=== PATIENT | female | born 1975 | race Caucasian/White ===

== ENCOUNTER 2017-03-07 06:14 | Emergency (ER) | payer MEDICAID ==
[~2017-03-07] VITALS: Ht 162.6 cm; Wt 73.3 kg
[2017-03-07 06:21] VITALS: Ht 162.6 cm; Wt 73.3 kg
[2017-03-07] MEDS ORDERED: KETOROLAC 30 MG INJ IV STA (06:32)
[2017-03-07] MEDS ORDERED: ONDANSETRON 4 MG INJ IV STA (06:32)
[2017-03-07 06:58] LABS: BASOPHIL # 0.1 10^3/ul (0.0-0.1); BASOPHILS % 0.6 % (0.0-2.0); EOSINOPHILS # 0.5 10^3/ul (0.0-0.5); EOSINOPHILS % 5.7 % (0.0-7.0); HEMATOCRIT 35.8 % (37.0-47.0); HEMOGLOBIN 12.5 g/dl (12.0-16.0); LYMPHOCYTES # 2.7 10^3/ul (0.8-2.9); MEAN CORPUSCULAR HEMOGLOBIN 28.9 pg (29.0-33.0); MEAN CORPUSCULAR HGB CONC 34.9 g/dl (32.0-37.0); MEAN CORPUSCULAR VOLUME 82.7 fl (82.0-101.0); MEAN PLATELET VOLUME 8.6 fl (7.4-10.4); MONOCYTE # 0.5 10^3/ul (0.3-0.9); MONOCYTES % 6.4 % (0.0-11.0); NEUTROPHIL # 4.6 10^3/ul (1.6-7.5); NEUTROPHILS % 55.1 % (39.0-77.0); PLATELET COUNT 409 10^3/UL (140-415); RED BLOOD COUNT 4.33 10^6/ul (4.20-5.40); WHITE BLOOD COUNT 8.3 10^3/ul (4.8-10.8)
[2017-03-07 07:04] LABS: ADD UMIC YES; UR ASCORBIC ACID NEGATIVE (NEGATIVE); UR BACTERIA FEW /HPF (NONE SEEN); UR BILIRUBIN (Dip) NEGATIVE (NEGATIVE); UR BLOOD (Dip) 1+ mg/dL (NEGATIVE); UR CLARITY SLIGHTLY CLOUDY (CLEAR); UR COLOR YELLOW (YELLOW); UR GLUCOSE (Dip) NEGATIVE (NEGATIVE); UR KETONES (Dip) NEGATIVE (NEGATIVE); UR LEUKOCYTE ESTERASE (Dip) 3+ Leu/ul (NEGATIVE); UR MUCUS FEW /HPF (NONE SEEN); UR NITRITE (Dip) NEGATIVE (NEGATIVE); UR RBC 4 /HPF (0-5); UR SPECIFIC GRAVITY (Dip) 1.013 (1.003-1.030); UR SQUAMOUS EPITHELIAL CELL MODERATE /HPF (FEW); UR TOTAL PROTEIN (Dip) NEGATIVE (NEGATIVE); UR UROBILINOGEN (Dip) NEGATIVE (NEGATIVE)
[2017-03-07 07:35] LABS: ALBUMIN 4.2 g/dl (3.3-4.9); ALBUMIN/GLOBULIN RATIO 1.16; CALCIUM 8.3 mg/dl (8.4-10.2); CREATININE 0.6 mg/dl (0.44-1.00); POTASSIUM 3.9 mmol/L (3.5-5.1); TOTAL PROTEIN 7.8 g/dl (6.1-8.1)
--- NOTE | 2017-03-07 08:53 | RADRPT ---
PROCEDURE: US Pelvis. CLINICAL INDICATION: pelvic pain TECHNIQUE: Multiple sonographic images of the pelvis were obtained utilizing a transabdominal and endovaginal technique. The images were reviewed on a PACS workstation. COMPARISON: None. FINDINGS: The uterus is normal in size with a normal appearance of the myometrium. The uterus measures 9.1 x 4.1 x 5.1 cm. The endometrial stripe is homogeneous in appearance and has the thickness of 5 mm. The ovaries are normal in size and echogenicity. Normal Doppler flow is identified in both ovaries. The right ovary measures 4.2 x 1.8 x 3.1 cm. There is a 1.2 cm simple cyst in the right ovary. The left ovary measures 2.0 x 2.0 x 3.4 cm. No free fluid is present within the pelvis. RPTAT: AA IMPRESSION: Unremarkable pelvic ultrasound. .Donavon Bowser MD, Date Time Electronically viewed and signed by .Donavon Bowser MD, on 03/07/2017 08:53 .S/
[2017-03-07] MEDS ORDERED: ACET1TAB40 PO (09:52)
[2017-03-07] MEDS ORDERED: IBUP-1542 PO (09:52)
[2017-03-07] MEDS ORDERED: CEPH-443 PO (09:53)
--- NOTE | 2017-03-07 09:56 | ERD ---
ER Documentation Chief Complaint Chief Complaint BIBA x belly pain&vomiting today HPI This 5-year-old female presents with left lower quadrant abdominal pain or pelvic pain with nausea starting this morning. She denies any dysuria or vaginal discharge. She denies any fevers or vomiting. She denies any right- sided abdominal pain. Last menstrual period was 2 weeks ago. ROS All systems reviewed and are negative except as per history of present illness. Medications Home Meds Active Scripts Cephalexin* (Keflex*) 500 Mg Capsule, 500 MG PO QID for 5 Days, CAP Prov:LAZARO WILLETT MD 03/07/17 Acetaminophen with Codeine (Acetaminophen-Cod #3 Tablet) 1 Each Tablet, 1 TAB PO Q6H Y for PAIN, #7 TAB Prov:LAZARO WILLETT MD 03/07/17 Ibuprofen* (Motrin*) 600 Mg Tab, 600 MG PO Q6, #15 TAB Prov:LAZARO WILLETT MD 03/07/17 Allergies Allergies: Coded Allergies: No Known Allergy (Unverified , 03/07/17) PMhx/Soc Medical and Surgical Hx: pt denies Medical Hx, pt denies Surgical Hx Hx Alcohol Use: Yes Hx Substance Use: No Hx Tobacco Use: No Physical Exam Vitals Vital Signs Date Time Temp Pulse Resp B/P Pulse Ox O2 Delivery O2 Flow Rate FiO2 03/07/17 06:21 97.6 92 20 132/96 100 Physical Exam Const: [], Not ill-appearing. Head: Atraumatic Eyes: Normal Conjunctiva ENT: Normal External Ears, Nose and Mouth. Neck: Full range of motion..~ No meningismus. Resp: Clear to auscultation bilaterally Cardio: Regular rate and rhythm, no murmurs Abd: Soft, left lower quadrant. No rebound. No tenderness at McBurney's point no Fox sign., non distended. Normal bowel sounds Skin: No petechiae or rashes Back: No midline or flank tenderness Ext: No cyanosis, or edema Neur: Awake and alert Psych: Normal Mood and Affect Result Diagram: 03/07/1745 03/07/1745 Results 24 hrs Laboratory Tests Test 03/07/17 06:45 White Blood Count 8.310^3/ul Red Blood Count 4.3310^6/ul Hemoglobin 12.5g/dl Hematocrit 35.8% Mean Corpuscular Volume 82.7fl Mean Corpuscular Hemoglobin 28.9pg Mean Corpuscular Hemoglobin Concent 34.9g/dl Red Cell Distribution Width 13.0% Platelet Count 69925^3/UL Mean Platelet Volume 8.6fl Neutrophils % 55.1% Lymphocytes % 32.0% Monocytes % 6.4% Eosinophils % 5.7% Basophils % 0.6% Nucleated Red Blood Cells % 0.0/100WBC Neutrophils # 4.610^3/ul Lymphocytes # 2.710^3/ul Monocytes # 0.510^3/ul Eosinophils # 0.510^3/ul Basophils # 0.110^3/ul Nucleated Red Blood Cells # 0.010^3/ul Urine Color YELLOW Urine Clarity SLIGHTLY CLOUDY Urine pH 5.0 Urine Specific Tracy 1.013 Urine Ketones NEGATIVEmg/dL Urine Nitrite NEGATIVEmg/dL Urine Bilirubin NEGATIVEmg/dL Urine Urobilinogen NEGATIVEmg/dL Urine Leukocyte Esterase 3+Carlos/ul Urine Microscopic RBC 4/HPF Urine Microscopic WBC 23/HPF Urine Squamous Epithelial Cells MODERATE/HPF Urine Bacteria FEW/HPF Urine Mucus FEW/HPF Urine Hemoglobin 1+mg/dL Urine Glucose NEGATIVEmg/dL Urine Total Protein NEGATIVEmg/dl Sodium Level 140mmol/L Potassium Level 3.9mmol/L Chloride Level 103mmol/L Carbon Dioxide Level 25mmol/L Anion Gap 16 Blood Urea Nitrogen 7mg/dl Creatinine 0.60mg/dl Glucose Level 129mg/dl Calcium Level 8.3mg/dl Total Bilirubin 0.0mg/dl Direct Bilirubin 0.00mg/dl Indirect Bilirubin 0.0mg/dl Aspartate Amino Transf (AST/SGOT) 18IU/L Alanine Aminotransferase (ALT/SGPT) 22IU/L Alkaline Phosphatase 108IU/L Total Protein 7.8g/dl Albumin 4.2g/dl Globulin 3.60g/dl Albumin/Globulin Ratio 1.16 Lipase 183U/L Current Medications Medications (Trade) Dose Ordered Sig/Belkys Route PRN Reason Start Time Stop Time Status Last Admin Dose Admin Ondansetron HCl (Zofran Inj) 4 mg ONCE STAT IV 03/07/17 06:32 03/07/17 06:34 DC 03/07/17 06:51 Ketorolac Tromethamine 30 mg 30 mg ONCE STAT IV 03/07/17 06:32 03/07/17 06:34 DC 03/07/17 06:51 Ceftriaxone Sodium (Rocephin) 50 ml @ 100 mls/hr ONCE ONCE IVPB 03/07/17 10:00 03/07/17 10:29 Azithromycin (Zithromax) 1,000 mg ONCE ONCE PO 03/07/17 10:00 03/07/17 10:01 UNV Procedures/MDM Ultrasound shows no acute abnormalities going to the radiologist. Urine was sent for gonorrhea chlamydia. CBC and CMP was normal. Urine shows positive white blood cells and leukocyte Estrace. HCG is negative. Patient was given 1 g Rocephin IV and Zithromax 1 g p.o. after findings of CMT on pelvic exam. She was given Toradol 30 mg IV as well. She presents 1 day history of left-sided pelvic pain of uncertain etiology signs of cervicitis. Current signs or symptoms do not suggest ectopic , ovarian torsion, tubo-ovarian abscess , appendicitis, acute abdomen. She will treated with Keflex given findings of UTI although pyuria may be from cervicitis. She was advised to follow-up with primary doctor this week or return to ER for new or worsening symptoms such as fevers, vomiting, worsening pain, otherwise as directed. The patient was stable with no new complaints during the ER course. Clinically, there is no current evidence to suggest meningitis, sepsis, acute abdomen, pneumonia, acute coronary syndrome, pulmonary embolism, or any other emergent condition appearing to require further evaluation or hospitalization. The patient should certainly return for any new or worsening symptoms per the aftercare instructions. They should otherwise follow-up with her primary care doctor for reevaluation this week. Departure Diagnosis: Primary Impression: UTI (urinary tract infection) Urinary tract infection type: acute cystitis Hematuria presence: without hematuria Qualified Code: N30.00 - Acute cystitis without hematuria Additional Impressions: Cervicitis Pelvic pain Condition: Stable Patient Instructions: Understanding Urinary Tract Infections (UTIs), Cervicitis (Std), Treated, Pelvic Pain, Unknown Cause Additional Instructions: Cheque otro vez con hardy doctor primario en el proximo [place] or regresa para mas o nueva simptomas. LAZARO WILLETT MD Mar 07, 2017 09:56
[2017-03-07] MEDS ORDERED: CEFTRIAXONE 1 GM/50 ML (PMX) 50 ML IVPB ONE (10:00)
[2017-03-07] MEDS ORDERED: AZITHROMYCIN 250 MG TAB PO ONE (10:00)
[2017-03-07 11:04] VITALS: BP 127/84; PULSE 87; RESP 17; TEMP 98.6
== END 2017-03-07 11:05 | disposition home or self-care (01) ==
LOC: FTE 06:14
DX: N30.00 Acute cystitis without hematuria (principal); N72 Inflammatory disease of cervix uteri; R10.2 Pelvic and perineal pain
CPT/HCPCS: 36415; 76830; 76856; 80053; 81001; 83690; 85025; 87591; 96374; 96375; J0696; J1885; J2405; Z7502; Z7610